=== PATIENT | female | born 1945 | race Caucasian/White ===

== ENCOUNTER 2017-08-03 11:57 | Day surgery (SDC) | payer OTHER ==
[2017-08-03] MEDS ORDERED: Iopamidol 408 MG/ML 50 ML SDV ONE (12:05)
[2017-08-03] MEDS ORDERED: Lidocaine 2% 5 ML SDV ONE (12:05)
[2017-08-03] MEDS ORDERED: Ropivacaine 0.5% 5 MG/ML 30 ML SDV ONE (12:05)
[2017-08-03] MEDS ORDERED: Betamethasone Acetate/Betamethasone Sod Phosphate 30 MG/5 ML MDV ONE (12:05)
--- NOTE | 2017-08-03 18:47 | OR ---
SURGEON: Ermelinda Doll D.O. DATE OF PROCEDURE: 08/03/2017 OR STAFF: 1. Mateo Gracia RN. 2. Jaja Duran RN. 3. Cassandra Jenkins RT. WOUND CLASSIFICATION: I. PREOPERATIVE DIAGNOSIS: Right sacroiliac joint dysfunction. POSTOPERATIVE DIAGNOSIS: Right sacroiliac joint dysfunction. PROCEDURES PERFORMED: 1. Right sacroiliac joint injection. 2. Fluoroscopic guidance for needle placement. 3. Local with oral Valium for sedation. SCREENING QUESTIONS: The patient answered "No" to all the followin. Are you allergic to iodine, Betadine or latex? 2. Do you have a bleeding disorder? 3. Do you have any joint replacements, heart valve replacements or a pacemaker? 4. Are you on any anti-inflammatories or blood thinners? 5. Do you have any current local or systemic infections? MEDICAL NECESSITY: This is a patient with a history of severe chronic low back pain and sacroiliac joint irritation with pain over the sacral sulcus and the buttocks region who comes in for the above diagnostic and therapeutic procedure. Please see medical necessity note attached. This procedure is being done in accordance with guidelines as written by the [employer] ([place]). DESCRIPTION OF PROCEDURE: The patient had the procedure thoroughly explained including all possible risks, benefits and alternatives. Consent was signed in my clinic indicating understanding and willingness to proceed. The patient presented to the outpatient [facility] and was escorted to the dressing room to disrobe and change into a hospital gown. Preoperative vital signs were taken and stable. The patient reported that Valium was taken prior to the procedure. The patient was brought to the procedure room and placed in the prone position on the procedure room table. A pillow was placed under the hips in order to flatten the lumbar lordosis. The back was prepped with ChloraPrep and sterilely draped. All personnel in the operating room were dressed in appropriate attire including surgical scrubs, head and shoe covers. This was to ensure sterility while in the treatment room. During the time fluoroscopy was in use all personnel in the operating room wore lead loyola with thyroid collars. Sterile technique was used during the procedure. The patient was awake and conversant throughout the procedure. The fluoroscope was positioned to provide an oblique view of the sacroiliac joint. There was no evidence of infection at the site of needle insertion. The skin was anesthetized with 2% Lidocaine with a sterile 27-gauge 1.5 inch needle. Then under fluoroscopy a 22-gauge 3.5 inch spinal needle was placed within the sacroiliac joint in the lower one-third of the joint. IsoVue-200 contrast dye was injected under live fluoroscopy and no intravascular flow pattern was observed. After negative aspiration of heme, the following solution was injected: 0.5% Ropivacaine, Celestone and 2% Lidocaine. The patient tolerated the procedure well and vital signs were stable during and after the procedure. The staff escorted the patient to the recovery area and the patient was released to home in stable condition after a brief stay in the recovery room monitored by the nurse. The patient was given both oral and written discharge and follow up instructions. Recommended follow up in two weeks. The patient is able to contact the office if there are any additional problems or questions in the meantime. The patient was given discharge instruction and verbalizes understanding including understanding of those signs and symptoms that would require emergency care. PREOPERATIVE PAIN: 5 to 10/10. POSTOPERATIVE PAIN: 2/10. PLAN: Follow up in the Pain Clinic in 3 weeks. NELY / ALAN /[id number]
== END 2017-08-03 14:00 | disposition home or self-care (01) ==
LOC: MW.SDS 11:57
PROVIDERS: ATTEND Anesthesiology
DX: M53.3 Sacrococcygeal disorders, not elsewhere classified (principal); M46.1 Sacroiliitis, not elsewhere classified; I10 Essential (primary) hypertension; E78.00 Pure hypercholesterolemia, unspecified; Z87.891 Personal history of nicotine dependence; Z88.8 Allergy status to other drugs, medicaments and biological substances; Z79.899 Other long term (current) drug therapy; Z98.49 Cataract extraction status, unspecified eye; Z96.649 Presence of unspecified artificial hip joint; Z98.84 Bariatric surgery status; Z98.890 Other specified postprocedural states
CPT/HCPCS: 27096; J0702; J2795; Q9966; G0260